=== PATIENT | male | born 1995 | race African-American/Black ===

== ENCOUNTER 2019-12-26 17:48 | Emergency (ER) | payer SELFPAY ==
[~2019-12-26] VITALS: Ht 177.8 cm; Wt 84.0 kg
[2019-12-26] MEDS ORDERED: LEVETIRACETAM 500MG PREMIX 100 ML IV ONE (18:45)
[2019-12-26 18:59] LABS: BASOPHILS % 0.4 % (0.0-2.0); EOSINOPHILS % 0.9 % (0.0-5.0); HEMATOCRIT. 40.8 % (42.0-52.0); HEMOGLOBIN. 13.7 g/dL (14.0-18.0); LYMPHOCYTES % 11.1 % (20.0-50.0); MEAN CORPUSCULAR HEMOGLOBIN 26.6 pg (28.0-32.0); MEAN CORPUSCULAR VOLUME 79.2 fL (80.0-94.0); MEAN PLATELET VOLUME 7.8 fl (7.4-10.4); MONOCYTES % 7.5 % (2.0-8.0); NEUTROPHILS % 80.1 % (40.0-76.0); PLATELET 344 x1000/uL (130-400); RED BLOOD CELL COUNT 5.15 mill/uL (4.7-6.1); RED CELL DISTRIBUTION WIDTH 15.4 % (11.6-14.6)
[2019-12-26 19:07] LABS: CHLORIDE 108 mEq/L (98-107)
[2019-12-26 21:00] VITALS: BP 130/68
== END 2019-12-26 21:39 | disposition home or self-care (01) ==
LOC: ER 17:48
DX: G40.909 Epilepsy, unspecified, not intractable, without status epilepticus (principal)
CPT/HCPCS: 36415; 80053; 85025; 93005; 96365; 99284; J1953